=== PATIENT | male | born 2000 | race African-American/Black ===

== ENCOUNTER → 2021-10-28 02:26 | Outpatient (CLI) | payer SELFPAY ==
[2021-10-28 21:05] LABS: SARS-CoV-2 RNA PCR Positive
== END ==
PROVIDERS: PCP Family Medicine Adolescent Medicine; Visit Provider Family Medicine Adolescent Medicine
DX: U07.1 COVID-19 (principal)
CPT/HCPCS: C9803; U0003; U0005

== ENCOUNTER 2025-10-11 09:20 | Emergency (ER) | payer SELFPAY ==
[2025-10-11 09:29] VITALS: BP 155/84; PULSE 91; RESP 18; TEMP 36.7; O2SAT 100
--- NOTE | 2025-10-11 10:36 | ED_ITS ---
HPI - Extremity Injury (Lower) General Chief Complaint: Extremity Injury, Lower Stated Complaint: pulled muscle R leg after stepping in hole Time Seen by Provider: 10/11/25 09:32 Source: patient Mode of arrival: ambulatory Limitations: no limitations History of Present Illness HPI Narrative: Patient is a 25-year-old male who presents the ED with report of right thigh pain. 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 Feels as though he strained his right hamstring muscle. Has been able to ambulate since then, but has pain with certain movements. Denies numbness, bruising, knee pain. States he was told to come to the hospital by [email or web address]. Related Data Allergies Allergy/AdvReac Type Severity Reaction Status Date / Time No Known Allergies Allergy Verified 10/11/25 09:32 Review of Systems Review of Systems: All systems reviewed & are unremarkable except as noted in HPI. All systems reviewed & are unremarkable except as noted in HPI and below Exam Narrative: GENERAL: Well appearing, well-nourished, non-toxic, in no acute distress. HEAD: Normocephalic, atraumatic. RESPIRATORY: Airway patent, respirations nonlabored. CARDIOVASCULAR: Regular rate and rhythm. Pedal pulses intact and easily palpable MUSCULOSKELETAL: Moves all extremities. No gross deformities. Tenderness to palpation throughout right posterior mid thigh. No significant swelling or bruising appreciated. No palpable muscle deformities. No significant tenderness along the gluteal crease. Sensation intact throughout right lower extremity. SKIN: Warm, dry, normal color. NEURO: A&O X3. Speech clear. Cranial nerves II-XII grossly intact. Steady gait. No ataxic movements. PSYCHIATRIC: Appropriate mood and affect. Normal interaction. Course Vital Signs Vital signs: Vital Signs Temperature 98.1 F 10/11/25 09:29 Pulse Rate 91 10/11/25 09:29 Respiratory Rate 18 10/11/25 09:29 Blood Pressure 155/84 H 10/11/25 09:29 Pulse Oximetry 100 10/11/25 09:29 Oxygen Delivery Room Air 10/11/25 09:29 Temperature 98.1 F 10/11/25 09:29 Pulse Rate 91 10/11/25 09:29 Respiratory Rate 18 10/11/25 09:29 Blood Pressure 155/84 H 10/11/25 09:29 Pulse Oximetry 100 10/11/25 09:29 Oxygen Delivery Room Air 10/11/25 09:29 [facility] MDM Narrative Medical decision making narrative: Patient?s injury is consistent with musculoskeletal etiology. No signs of neurologic or vascular compromise on physical examination. Compartments are soft without signs of compartment syndrome. Patient is able to ambulate. Low suspicion for femur fracture. No significant bony tenderness throughout near hip. No indication for imaging at this time. Suspicious for hamstring strain versus partial tear. Low suspicion for complete tear given lack of swelling/bruising/deformity. Will place patient in Олег bandage and refer to orthopedics for further evaluation as needed. Patient is felt to be stable for discharge home and further outpatient management and treatment. Discussed rice therapy, return precautions. Patient in agreement with plan. Discharged in stable condition. Differential Diagnosis Differential Diagnosis: Hamstring strength, hamstring rupture, femur fracture, knee sprain Medical Records I have reviewed the following patient records and this information was taken into consideration when formulating the assessment and plan.: previous labs, previous ER visits, previous hospitalizations and previous clinic visits Discharge Plan Discharge Clinical Impression: Right hamstring muscle strain Qualifiers: Encounter type: initial encounter Qualified Code(s): S76.311A - Strain of muscle, fascia and tendon of the posterior muscle group at thigh level, right thigh, initial encounter Patient Disposition: Home Condition: Stable Instructions: Antibiotic Form, Hamstring Injury (ED), P.R.I.C.E. Treatment (ED), Hamstring Exercises (ED) Additional Instructions: Recommend rest, ice to thigh, Tylenol/ibuprofen as needed for pain. Follow-up with orthopedics for further evaluation as needed. Call office to make appointment. Return to the ED if you experience worsening or severe pain, recurrent fall or injury, or any other symptoms of concern Patient Language: Persian Follow-up/Referrals: PHYSICIAN,A/C TECHNICIAN [Primary Care Provider, Internal Medicine] Matthew Freedman MD [Physician, Orthopedics] Stand Alone Forms: Work/School Release IP Time of Disposition: 10:38
== END 2025-10-11 10:57 | disposition home or self-care (01) ==
PROVIDERS: Emergency Provider Physician Assistant
DX: S76.311A Strain of muscle, fascia and tendon of the posterior muscle group at thigh level, right thigh, initial encounter (principal); W01.0XXA Fall on same level from slipping, tripping and stumbling without subsequent striking against object, initial encounter
CPT/HCPCS: 99282